=== PATIENT | male | born 1970 | race Caucasian/White ===

== ENCOUNTER 2020-01-07 09:31 | Emergency (ER) | payer MEDICAID ==
[~2020-01-07] VITALS: Ht 167.6 cm; Wt 68.2 kg
[2020-01-07] MEDS ORDERED: amox tr/potassium clavulanate 875/125mg TAB PO ONE (11:35)
[2020-01-07] MEDS ORDERED: ibuprofen tablet 400 MG TABLET PO ONE (11:35)
[2020-01-07] MEDS ORDERED: AMOX-580 PO (11:41)
[2020-01-07] MEDS ORDERED: IBUP-1984 PO (11:41)
[2020-01-07 13:57] LABS: BASOPHILS # (AUTO) 0.1 X10'3 (0-0.2); BASOPHILS % (AUTO) 0.9 % (0-1); EOSINOPHILS # (AUTO) 0.1 X10'3 (0-0.9); EOSINOPHILS % (AUTO) 1.4 % (0-6); HEMATOCRIT 36.2 % (42.0-52.0); HEMOGLOBIN 11.6 g/dl (14.0-17.9); LYMPHOCYTES # (AUTO) 1.8 X10'3 (1.1-4.8); LYMPHOCYTES % (AUTO) 20.4 % (21-51); MEAN CORPUSCULAR HEMOGLOBIN 25.8 PG (27.0-31.0); MEAN CORPUSCULAR HGB CONC 31.9 g/dL (33.0-36.5); MEAN CORPUSCULAR VOLUME 80.9 FL (78-98); MEAN PLATELET VOLUME 7.8 FL (7.4-10.4); MONOCYTES # (AUTO) 0.4 X10'3 (0-0.9); MONOCYTES % (AUTO) 4.3 % (2-12); NEUTROPHILS # (AUTO) 6.5 X10'3 (1.8-7.7); PLATELET COUNT 271 X10'3 (140-440); RED BLOOD COUNT 4.48 X10'6 (4.70-6.10); RED CELL DISTRIBUTION WIDTH 17.3 % (11.5-14.5); WHITE BLOOD COUNT 8.9 X10'3 (4.5-11.0)
[2020-01-07 14:13] LABS: ALANINE AMINOTRANSFERASE 11 U/L (12-78); ALBUMIN 2.7 G/DL (3.4-5.0); ALBUMIN/GLOBULIN RATIO 0.8 (1.1-1.5); ALKALINE PHOSPHATASE 76 IU/L (46-116); ANION GAP 5 (8-16); ASPARTATE AMINO TRANSFERASE 10 U/L (10-37); BILIRUBIN,TOTAL 0.2 MG/DL (0.1-1.0); BLOOD UREA NITROGEN 14 MG/DL (7-18); BUN/CREATININE RATIO 17.3 (5.4-32.0); CALCIUM 8.3 MG/DL (8.5-10.1); CHLORIDE 106 MMOL/L (99-107); CREATININE 0.81 MG/DL (0.60-1.10); ETHANOL < 0.010 GM/DL (0.0-0.010); GLUCOSE 236 MG/DL (70-104); POTASSIUM 4.1 MMOL/L (3.5-5.1); SODIUM 138 MMOL/L (135-145); TOTAL CARBON DIOXIDE 27.3 MMOL/L (24-32); TOTAL PROTEIN 6.1 G/DL (6.4-8.2); eGFR > 90 ML/MIN
--- NOTE | 2020-01-07 15:03 | NUR ---
PT CAME OVER FROM MAIN ER. PT IS YELLING AT STAFF. SECURITY CALLED FOR STAND-BY.
[2020-01-07 15:30] LABS: URINE AMPHETAMINE SCREEN NEGATIVE (Neg); URINE BARBITUATE SCREEN NEGATIVE (Neg); URINE BENZODIAZEPINES SCREEN NEGATIVE (Neg); URINE CANNABINOID SCREEN NEGATIVE (Neg); URINE COCAINE SCREEN NEGATIVE (Neg); URINE METHADONE SCREEN NEGATIVE (Neg); URINE OPIATE SCREEN NEGATIVE (Neg); URINE PHENCYCLIDINE SCREEN NEGATIVE (Neg)
--- NOTE | 2020-01-07 16:00 | NUR ---
OCCUPATIONAL HE[employer] NURSING DIRECTOR DROPPED OF THE PT ATB
--- NOTE | 2020-01-07 17:19 | NUR ---
PT IS RESTING IN HIS ROOM NO ISSUES AT THIS TIME
[2020-01-07 17:37] VITALS: BP 101/68
[2020-01-07 18:26] LABS: CLARITY,URINE CLEAR (Clear); COLOR,URINE YELLOW (Yellow); GLUCOSE, URINE NEGATIVE (Neg); KETONES,URINE NEGATIVE (Neg); LEUKOCYTE ESTERASE ,URINE NEGATIVE (Neg); NITRITES, URINE NEGATIVE (Neg); OCCULT BLOOD,URINE NEGATIVE (Neg); PH,URINE 6.5 (4.8-8.0); PROTEIN,URINE NEGATIVE (Neg)
[2020-01-07 18:27] LABS: UA COLLECTION TYPE CLN CATCH MIDSTREAM
--- NOTE | 2020-01-07 18:45 | NUR ---
pt transfered from to main ed room 16 in [facility]
--- NOTE | 2020-01-07 18:54 | NUR ---
pt is sitting upright in bed eating dinner in the direct line of sight of nursing staff .
--- NOTE | 2020-01-07 21:02 | NUR ---
pt resting in bed supine . resp even and unlabored . in the direct line of sight of nursing staff will continue to monitor and reassess as needed
--- NOTE | 2020-01-07 22:24 | NUR ---
Pt sleeping,lying on his left side with blankets covering to his shoulders
--- NOTE | 2020-01-07 23:30 | NUR ---
pt asleep in bed , resp even and unlabored will continue to monitor and reassess . pt in the direct line of sight of nursing staff.
--- NOTE | 2020-01-08 00:30 | NUR ---
pt sleeping bed supine asleep resp even and unlabored . pt in the directline of sight of bursing staff will continue to monitor and reassess
[2020-01-08] MEDS ORDERED: NO HOME MEDS (01:00)
--- NOTE | 2020-01-08 01:30 | NUR ---
PT SLEEPING PEACFULLY RESP EVEN AND UNLOBORED . WILL CONTINUE TO MONITOR AND REASSESS
--- NOTE | 2020-01-08 02:30 | NUR ---
PT SLEEPING ON HIS RIGHT SIDE RESP EVEN AND UNLABORED , NO CHANGES TO PREVIOUS ASSESSMENT WILL CONTINUE TO MONITOR AND REASSESS
--- NOTE | 2020-01-08 03:30 | NUR ---
PT SLEEPING ON HIS LEFT SIDE . RESP EVEN AND UNLABORED IN THE DIRECT LINE OF SIGHT OF NURSING STAFF WILL CONTINUE TO MONIOTR AND REASSESS
--- NOTE | 2020-01-08 04:00 | NUR ---
MED REC FAXED TO PHARMACY
--- NOTE | 2020-01-08 04:24 | NUR ---
PACKET REFAXED TO [facility]
--- NOTE | 2020-01-08 04:25 | NUR ---
PT SLEEPING IN BED WITH UNLABORED RESP . IN THE DIRECT LINE OF SIGHT OF NURSING SERVICE
--- NOTE | 2020-01-08 05:30 | NUR ---
PT UP OUT OF BED TO VOID AMBULATED WITH STEADY GAIT WITH [employer] THEN BACK TO BED
--- NOTE | 2020-01-08 06:30 | NUR ---
Pt brought to room 22. Oriented to room and unit.
--- NOTE | 2020-01-08 08:30 | NUR ---
Medicated with tylenol for generalized pain. States nobody here takes his pain seriously but does not want to talk about it.
[2020-01-08] MEDS ORDERED: acetaminophen 325mg tablet PO ONE (08:35)
--- NOTE | 2020-01-08 10:30 | NUR ---
Pt now sleeping on left side. No s/s of distress noted.
--- NOTE | 2020-01-08 12:57 | NUR ---
pt resting on back rr equal and unlabored
--- NOTE | 2020-01-08 14:30 | NUR ---
Arthur from [facility] still attempting to assess pt. Pt refusing to cooperate.
[2020-01-08] MEDS ORDERED: AMOX500C2 PO (14:33)
== END 2020-01-08 15:00 | disposition home or self-care (01) ==
LOC: ER 09:31
DX: L01.00 Impetigo, unspecified (principal); R45.851 Suicidal ideations; Z76.5 Malingerer [conscious simulation]; L03.116 Cellulitis of left lower limb; L03.115 Cellulitis of right lower limb; F17.200 Nicotine dependence, unspecified, uncomplicated; Z59.0 Homelessness; Z86.14 Personal history of Methicillin resistant Staphylococcus aureus infection; Z79.2 Long term (current) use of antibiotics; Z79.899 Other long term (current) drug therapy
CPT/HCPCS: 36415; 80053; 80305; 80320; 81003; 85025; 99284